=== PATIENT | male | born 1985 | race Caucasian/White ===

== ENCOUNTER 2018-02-05 15:16 | Emergency (ER) | payer OTHER ==
[~2018-02-05] VITALS: Ht 177.8 cm; Wt 77.1 kg
[2018-02-05 15:16] VITALS: BP 147/90
--- NOTE | 2018-02-05 15:27 | NUR ---
PT AMBULATED TO BED 11
--- NOTE | 2018-02-05 15:30 | NUR ---
REPORT GIVEN TO JULIA MARIO
--- NOTE | 2018-02-05 15:31 | NUR ---
Note undone in EDM - 02/05/18 at 1551 by [email or web address] 32 /M BIB SELF C/O NAUSEA, LOOSE STOOL ,SIM & DIZZINESS X TODAY. MED HX:DENIES. SKIN IS PINK/WARM/DRY; AAOX4 WITH EVEN AND STEADY GAIT; LUNGS CLEAR BL. ABDOMEN :SOFT. PATIENT STATES PAIN OF 0/10 AT THIS TIME. PATIENT POSITIONED FOR COMFORT; HOB ELEVATED; BEDRAILS UP X2; BED DOWN. ER MADE AWARE OF PT STATUS.
--- NOTE | 2018-02-05 15:31 | NUR ---
32 /M BIB SELF C/O NAUSEA, LOOSE STOOL ,SIM & DIZZINESS X TODAY. MED HX:DENIES. SKIN IS PINK/WARM/DRY; AAOX4 WITH EVEN AND STEADY GAIT; LUNGS CLEAR BL. ABDOMEN :SOFT. PATIENT STATES PAIN OF 3/10 AT THIS TIME. PATIENT POSITIONED FOR COMFORT; HOB ELEVATED; BEDRAILS UP X2; BED DOWN. ER MD MADE AWARE OF PT STATUS.
--- NOTE | 2018-02-05 15:56 | NUR ---
Patient being evaluated by DR QUINTANILLA at bedside.
[2018-02-05] MEDS ORDERED: NACL 0.9% 1,000 ML IV ONE (16:05)
--- NOTE | 2018-02-05 16:22 | NUR ---
LAB AT BEDSIDE.
[2018-02-05 16:31] LABS: BASOPHILS % (AUTO) 0.4 % (0.0-2.0); EOSINOPHILS % (AUTO) 0.4 % (0.0-4.0); HEMATOCRIT 43.9 % (36-52); HEMOGLOBIN 15.1 g/dL (12.0-18.0); LYMPHOCYTES % (AUTO) 13.6 % (20.5-51.1); MEAN CORPUSCULAR HEMOGLOBIN 29 pg (27-31); MEAN CORPUSCULAR HGB CONC 35 g/dL (33-37); MEAN CORPUSCULAR VOLUME 82.8 fL (80-94); MONOCYTES # (AUTO) 0.5 K/uL (0.8-1.0); MONOCYTES % (AUTO) 6.7 % (1.7-9.3); NEUTROPHILS # (AUTO) 5.8 K/uL (1.8-7.7); NEUTROPHILS % (AUTO) 78.9 % (42.2-75.2); PLATELET COUNT (AUTO) 222 K/uL (140-450); RED CELL DISTRIBUTION WIDTH 12.7 % (11.6-13.7); WHITE BLOOD COUNT (AUTO) 7.3 K/uL (4.8-10.8)
[2018-02-05 16:58] LABS: ALBUMIN 4.5 g/dL (3.4-5.0); ANION GAP 12.4 (8-16); CARBON DIOXIDE 28.2 mmol/L (21-32); CREATININE 1.1 mg/dL (0.7-1.3); POTASSIUM 3.6 mmol/L (3.5-5.1); TOTAL BILIRUBIN 0.4 mg/dL (0.0-1.0)
--- NOTE | 2018-02-05 17:23 | NUR ---
Patient being reevaluated by DR QUINTANILLA at bedside.
[2018-02-05 17:30] VITALS: BP 124/59
--- NOTE | 2018-02-05 17:30 | NUR ---
Patient discharged with v/s stable. Written and verbal after care instructions given and explained. Patient verbalized understanding. Ambulatory with steady gait. All questions addressed prior to discharge. Advised to follow up with PMD.
== END 2018-02-05 17:30 | disposition home or self-care (01) ==
LOC: MED 15:16
DX: R53.1 Weakness (principal); R42 Dizziness and giddiness; R06.02 Shortness of breath; R20.2 Paresthesia of skin
CPT/HCPCS: 36415; 80053; 81002; 82948; 85025; 96360; 99284